=== PATIENT | female | born 1990 | race Two or more races ===

== ENCOUNTER 2024-10-13 19:12 | Emergency (ER) | payer OTHER ==
[~2024-10-13] VITALS: Ht 157.5 cm; Wt 54.4 kg
[2024-10-13] MEDS ORDERED: 0.9 % SODIUM CHLORIDE 1,000 ML IV ONE (20:30)
[2024-10-13] MEDS ORDERED: DICYCLOMINE HCL 20 MG TABLET PO ONE (20:30)
[2024-10-13] MEDS ORDERED: FAMOtidine 10 MG/ML (4ML VIAL) IV ONE (20:30)
[2024-10-13] MEDS ORDERED: ONDANSETRON HCL 2 MG/ML VIAL IV ONE (20:30)
[2024-10-13] MEDS ORDERED: ONDANSETRON HCL 2 MG/ML VIAL ONE (20:41)
[2024-10-13] MEDS ORDERED: DICYCLOMINE HCL 10 MG CAPSULE PO ONE (20:41)
[2024-10-13] MEDS ORDERED: FAMOTIDINE/PF 20 MG/2 ML VIAL ONE (20:42)
[2024-10-13 21:03] LABS: HEMATOCRIT 41.5 % (36.0-45.00); HEMOGLOBIN 14.7 g/dL (12.0-15.00); MEAN CELL VOLUME 89.9 fL (80.00-100.00); MEAN CORPUSCULAR HEMOGLOBIN 31.7 pg (27.00-32.0); MEAN CORPUSCULAR HGB CONC 35.3 g/dl (32.0-36.0); PLATELET COUNT 280 K/uL (150-450); RED BLOOD COUNT 4.62 M/uL (4.00-6.00); RED CELL DISTRIBUTION WIDTH 13.5 % (11.5-14.5)
[2024-10-13] MEDS ORDERED: ZOFRAN8 MG PO (23:02)
[2024-10-13] MEDS ORDERED: PEPCID AC20 MG PO (23:02)
== END 2024-10-13 23:26 | disposition home or self-care (01) ==
LOC: ER 19:14
PROVIDERS: General Practice
DX: K29.60 Other gastritis without bleeding (principal); Z20.822 Contact with and (suspected) exposure to COVID-19